=== PATIENT | female | born 1980 | race Caucasian/White ===

== ENCOUNTER 2017-08-21 15:41 | Emergency (ER) | payer OTHER ==
[~2017-08-21] VITALS: Ht 167.6 cm; Wt 64.0 kg
[2017-08-21 15:47] VITALS: Ht 167.6 cm; Wt 64.0 kg
[2017-08-21 17:58] LABS: BASOPHIL % 0.4 % (0-2); PLATELET COUNT 234 x10^3mcL (130-400); RED CELL DISTRIBUTION WIDTH 13.9 % (11.5-14.5)
[2017-08-21 18:07] LABS: CALCIUM 8.9 mg/dL (8.5-10.1); CARBON DIOXIDE 26.5 mmol/L (21-32); CHLORIDE SERUM 100 mmol/L (98-107); CREATININE SERUM 0.7 mg/dL (0.6-1.0); GFR1 > 60 mL/min; GLUCOSE SERUM 99 mg/dL (74-106); POTASSIUM SERUM 3.8 mmol/L (3.5-5.1); SODIUM SERUM 138 mmol/L (136-145)
[2017-08-21 18:14] LABS: ALBUMIN 4.1 g/dL (3.4-5.0); ALKALINE PHOSPHATASE 80 U/L (46-116); ALT/SGPT 27 U/L (14-59); AST/SGOT 15 U/L (15-37); BILIRUBIN TOTAL 0.5 mg/dL (0.20-1.00); CHOLESTEROL 162 mg/dL (<200); CHOLESTEROL/HDL RATIO 2.7; HDL CHOLESTEROL 61 mg/dL (40-60); LIPASE 73 IU/L (73-393); TRIGLYCERIDES 54 mg/dL (<150)
[2017-08-21 18:43] VITALS: BP 99/65
== END 2017-08-21 18:43 | disposition home or self-care (01) ==
LOC: ED 15:41
PROVIDERS: Specialist
DX: H66.92 Otitis media, unspecified, left ear (principal); H65.91 Unspecified nonsuppurative otitis media, right ear; R07.89 Other chest pain; R42 Dizziness and giddiness; R06.2 Wheezing; R20.2 Paresthesia of skin; R11.10 Vomiting, unspecified
CPT/HCPCS: 36415; 83880; Q0092; Q0162